=== PATIENT | male | born 1990 | race Hispanic/Latino ===

== ENCOUNTER 2020-09-04 00:27 | Emergency (ER) | payer SELFPAY ==
[2020-09-04] MEDS ORDERED: LIDOCAINE HCL 400MG/20ML VIAL ONE (00:38)
[2020-09-04] MEDS ORDERED: 0.9%NACL 1000ML 2,000 ML IV ONE (01:12)
[2020-09-04 01:21] LABS: BASOPHILS % (AUTO) 0.5 % (0.0-5.0); EOSINOPHILS % (AUTO) 1.9 % (0.0-8.0); HEMATOCRIT 43.8 % (42-54); LYMPHOCYTES % (AUTO) 36.4 % (21.0-51.0); MEAN CORPUSCULAR HEMOGLOBIN 30.4 pg (27.0-33.0); MEAN CORPUSCULAR HGB CONC 34.9 g/dL (32.0-36.0); MEAN CORPUSCULAR VOLUME 87.1 fL (79-99); MONOCYTES % (AUTO) 10.1 % (3.0-13.0); NEUTROPHILS % (AUTO) 50.6 % (40.0-77.0); PLATELET COUNT (AUTO) 240 K/uL (130-400); RED BLOOD CELL COUNT(AUTO) 5.03 MIL/uL (4.50-6.20); RED CELL DISTRIBUTION WIDTH 12.3 % (11.0-15.5); WHITE BLOOD COUNT (AUTO) 9.1 K/uL (4.8-10.8)
[2020-09-04 01:27] LABS: CREATININE 0.9 mg/dL (0.5-1.5); POTASSIUM 3.3 mmol/L (3.5-5.1)
[2020-09-04 01:29] LABS: INR 1.01 (0.85-1.15); PROTHROMBIN TIME 10.8 SEC (9.6-11.6)
[2020-09-04 01:30] LABS: PARTIAL THROMBOPLASTIN TIME 23.8 SEC (26.3-35.5)
[2020-09-04 01:31] LABS: ALBUMIN 4.4 g/dL (3.5-5.0); BILIRUBIN,TOTAL 0.7 mg/dL (0.2-1.0); TOTAL PROTEIN, SERUM 7.9 g/dL (6.0-8.3)
[2020-09-04] MEDS ORDERED: IOHEXOL-350 75 ML VIAL IV ONE (01:33)
[2020-09-04] MEDS ORDERED: CEFAZOLIN SODIUM 1 GM VIAL ONE (02:34)
[2020-09-04] MEDS ORDERED: KETOROLAC 30MG VIAL (30MG/ML) ONE (02:34)
[2020-09-04] MEDS ORDERED: ORPHENADRINE CITRATE 30 MG/ML ML ONE (02:34)
[2020-09-04] MEDS ORDERED: 0.9%NACL 50ML 50 ML IV ONE (02:36)
[2020-09-04] MEDS ORDERED: HYDROCODONE/ACETAMINOPHEN 5/325 MG TAB ONE (03:35)
== END 2020-09-04 03:52 | disposition home or self-care (01) ==
LOC: EDH 00:27
DX: S29.022A Laceration of muscle and tendon of back wall of thorax, initial encounter (principal); X58.XXXA Exposure to other specified factors, initial encounter; Y93.89 Activity, other specified; Y92.89 Other specified places as the place of occurrence of the external cause; Y99.8 Other external cause status
CPT/HCPCS: 12001; 36415; 71045; 71260; 80053; 83690; 84484; 85025; 85610; 85730; 93005; 96361; 96365; 96375; 99291; J0690; J1885; J2360; J3490; J7030; Q9967

== ENCOUNTER 2021-01-05 13:46 | Inpatient (IN) | payer SELFPAY ==
[~2021-01-05] VITALS: Ht 180.3 cm; Wt 88.5 kg
[2021-01-05 14:12] LABS: APPEARANCE,URINE Clear (CLEAR); BILIRUBIN,URINE Negative (NEGATIVE); COLOR,URINE Dark Yellow (YELLOW); GLUCOSE, URINE (UA) Negative (NEGATIVE); KETONES,URINE Trace mg/dL (NEGATIVE); LEUKOCYTE ESTERASE ,URINE Small (NEGATIVE); NITRATE,URINE Negative (NEGATIVE); OCCULT BLOOD,URINE Trace (NEGATIVE); PH,URINE 5.5 (5.0-8.0); PROTEIN,URINE Trace mg/dL (NEGATIVE)
[2021-01-05 14:47] LABS: BASOPHILS % (AUTO) 0.2 % (0.0-5.0); HEMATOCRIT 45.7 % (42-54); LYMPHOCYTES % (AUTO) 3.4 % (21.0-51.0); MEAN CORPUSCULAR HEMOGLOBIN 30.6 pg (27.0-33.0); MEAN CORPUSCULAR HGB CONC 34.8 g/dL (32.0-36.0); MEAN CORPUSCULAR VOLUME 88.1 fL (79-99); MONOCYTES % (AUTO) 6.1 % (3.0-13.0); NEUTROPHILS % (AUTO) 89.9 % (40.0-77.0); PLATELET COUNT (AUTO) 200 K/uL (130-400); RED BLOOD CELL COUNT(AUTO) 5.19 MIL/uL (4.50-6.20); RED CELL DISTRIBUTION WIDTH 13.7 % (11.0-15.5); WHITE BLOOD COUNT (AUTO) 13.6 K/uL (4.8-10.8)
[2021-01-05] MEDS ORDERED: VANCOMYCIN 1GM+NS 250ML 250 ML IV ONE (14:49)
[2021-01-05] MEDS ORDERED: ACETAMINOPHEN EXTRA STRENGTH 500 MG TABLET ONE ×2 (14:50→15:02)
[2021-01-05] MEDS ORDERED: TETANUS/DIPHTHERIA TOXOID [ADULT] 0.5 ML VIAL IM ONE (14:51)
[2021-01-05] MEDS ORDERED: SODIUM CHLORIDE 0.9% 100 ML IV ONE ×2 (14:52→14:57)
[2021-01-05] MEDS ORDERED: ZOSYN 3.375GM+NS 50ML 50 ML IV ONE (14:52)
[2021-01-05] MEDS ORDERED: SODIUM CHLORIDE 0.9% 250 ML IV ONE (14:53)
[2021-01-05 14:57] LABS: CREATININE 1.1 mg/dL (0.5-1.5); POTASSIUM 3.7 mmol/L (3.5-5.1)
[2021-01-05 14:59] LABS: BACTERIA,URINE Rare /HPF (None Seen); RBC,URINE None Seen /HPF (0-1); SQUAMOUS EPITHELIAL CELL,UR None Seen /HPF (0-2)
[2021-01-05 15:01] LABS: TOTAL PROTEIN, SERUM 8.4 g/dL (6.0-8.3)
[2021-01-05 19:47] LABS: AMPHET/METH SCREEN,URINE NEGATIVE (NEGATIVE); BARBITURATE SCREEN, URINE NEGATIVE (NEGATIVE); BENZODIAZEPINES SCREEN,URINE NEGATIVE (NEGATIVE); CANNABINOID SCREEN,URINE NEGATIVE (NEGATIVE); COCAINE SCREEN,URINE NEGATIVE (NEGATIVE); OPIATE SCREEN,URINE NEGATIVE (NEGATIVE); PHENCYCLIDINE SCREEN,URINE NEGATIVE (NEGATIVE)
[2021-01-05] MEDS: ZOSYN 3.375GM+NS 50ML 50 ML IV SCH (21:00)
[2021-01-05] MEDS ORDERED: ACETAMINOPHEN 325 MG TAB ONE (22:54)
[2021-01-05] MEDS ORDERED: SODIUM CHLORIDE 0.9% 1000ML 1,000 ML IV ONE (22:54)
[2021-01-06] MEDS ORDERED: SODIUM CHLORIDE 0.9% 100 ML IV ONE (00:17)
[2021-01-06] MEDS ORDERED: ZOSYN 3.375GM+NS 50ML 50 ML IV ONE ×3 (00:17→17:22)
[2021-01-06] MEDS: SODIUM CHLORIDE 0.9% 1000ML 1,000 ML IV SCH ×6 (03:15→23:43)
[2021-01-06] MEDS ORDERED: KETOROLAC TROMETHAMINE 15MG/ML IV PRN (03:15)
[2021-01-06] MEDS ORDERED: ACETAMINOPHEN 325 MG TAB PO PRN (03:15)
[2021-01-06] MEDS: ZOSYN 3.375GM+NS 50ML 50 ML IV SCH ×3 (05:00→21:00)
[2021-01-06 08:24] LABS: BASOPHILS % (AUTO) 0.3 % (0.0-5.0); EOSINOPHILS % (AUTO) 0.5 % (0.0-8.0); HEMATOCRIT 42.6 % (42-54); LYMPHOCYTES % (AUTO) 11.4 % (21.0-51.0); MEAN CORPUSCULAR HEMOGLOBIN 30.8 pg (27.0-33.0); MEAN CORPUSCULAR HGB CONC 34.7 g/dL (32.0-36.0); MEAN CORPUSCULAR VOLUME 88.6 fL (79-99); MONOCYTES % (AUTO) 10.6 % (3.0-13.0); NEUTROPHILS % (AUTO) 76.9 % (40.0-77.0); PLATELET COUNT (AUTO) 181 K/uL (130-400); RED BLOOD CELL COUNT(AUTO) 4.81 MIL/uL (4.50-6.20); RED CELL DISTRIBUTION WIDTH 13.9 % (11.0-15.5); WHITE BLOOD COUNT (AUTO) 11.5 K/uL (4.8-10.8)
[2021-01-06 08:30] LABS: CREATININE 0.9 mg/dL (0.5-1.5); POTASSIUM 3.6 mmol/L (3.5-5.1)
[2021-01-06] MEDS ORDERED: KETOROLAC TROMETHAMINE 15MG/ML ONE (08:42)
[2021-01-06] MEDS ORDERED: THIAMINE HCL 100 MG/ML 2ML VIAL ONE (08:42)
[2021-01-06] MEDS ORDERED: FOLIC ACID 1 MG TABLET ONE (08:42)
[2021-01-06] MEDS ORDERED: SODIUM CHLORIDE 0.9% 50 ML IV ONE ×2 (08:44→17:23)
[2021-01-06] MEDS: FOLIC ACID 1 MG TABLET PO SCH (09:00)
[2021-01-06] MEDS: THIAMINE HCL 100 MG/ML 2ML VIAL IM SCH (09:00)
[2021-01-06] MEDS ORDERED: VANCOMYCIN PROTOCOL PER PHARMACY IV SCH (18:15)
[2021-01-06] MEDS ORDERED: SODIUM CHLORIDE 0.9% 1000ML 1,000 ML IV ONE (20:22)
[2021-01-06] MEDS ORDERED: SODIUM CHLORIDE 0.9% 250 ML IV ONE (22:13)
[2021-01-06 23:30] VITALS: BP 151/91
[2021-01-06] MEDS: VANCOMYCIN 1GM+NS 250ML 250 ML IV SCH (23:42)
[2021-01-07] VITALS: BP 151/100
[2021-01-07] MEDS: VANCOMYCIN 1GM+NS 250ML 250 ML IV SCH ×2 (00:26→10:12)
[2021-01-07] MEDS: ZOSYN 3.375GM+NS 50ML 50 ML IV SCH (03:28)
[2021-01-07 04:00] VITALS: BP 137/72
[2021-01-07 05:43] LABS: BASOPHILS % (AUTO) 0.4 % (0.0-5.0); EOSINOPHILS % (AUTO) 1.5 % (0.0-8.0); HEMATOCRIT 40.5 % (42-54); LYMPHOCYTES % (AUTO) 16.7 % (21.0-51.0); MEAN CORPUSCULAR HEMOGLOBIN 30.2 pg (27.0-33.0); MEAN CORPUSCULAR HGB CONC 34.1 g/dL (32.0-36.0); MEAN CORPUSCULAR VOLUME 88.6 fL (79-99); MONOCYTES % (AUTO) 13.7 % (3.0-13.0); NEUTROPHILS % (AUTO) 67.3 % (40.0-77.0); PLATELET COUNT (AUTO) 182 K/uL (130-400); RED BLOOD CELL COUNT(AUTO) 4.57 MIL/uL (4.50-6.20); WHITE BLOOD COUNT (AUTO) 8.4 K/uL (4.8-10.8)
[2021-01-07 06:10] LABS: CREATININE 0.9 mg/dL (0.5-1.5); POTASSIUM 3.9 mmol/L (3.5-5.1)
[2021-01-07 07:30] VITALS: BP 144/100
[2021-01-07] MEDS: SODIUM CHLORIDE 0.9% 1000ML 1,000 ML IV SCH (08:12)
[2021-01-07] MEDS: FOLIC ACID 1 MG TABLET PO SCH (09:00)
[2021-01-07] MEDS: THIAMINE HCL 100 MG/ML 2ML VIAL IM SCH (10:20)
[2021-01-07 10:45] VITALS: BP 139/93
[2021-01-07] MEDS ORDERED: LACTATED RINGERS 1000ML 1,000 ML IV ONE (10:50)
[2021-01-07] MEDS ORDERED: LABETALOL 20 MG/4 ML DISP.SYRIN IV PRN (11:00)
[2021-01-07] MEDS ORDERED: CEFAZOLIN SODIUM 1 GM VIAL ONE (11:14)
[2021-01-07 11:30] VITALS: BP 155/109
[2021-01-07 12:14] VITALS: BP 155/109
[2021-01-07] MEDS ORDERED: AMOX-429 PO (12:51)
== END 2021-01-07 13:29 | disposition left against medical advice (07) | DRG 603 ==
LOC: EDH 13:46 → OBSVTOIN 13:47 → EDHIP 13:47 → 3CH 01-06 21:32
PROVIDERS: ADMIT Internal Medicine; ATTEND Internal Medicine
PROC: 3E0234Z Introduction of Serum, Toxoid and Vaccine into Muscle, Percutaneous Approach (ICD-10-PCS; principal; 2021-01-05)
DX: L03.113 Cellulitis of right upper limb (principal); L02.511 Cutaneous abscess of right hand; F10.10 Alcohol abuse, uncomplicated; R74.8 Abnormal levels of other serum enzymes; Z20.822 Contact with and (suspected) exposure to COVID-19; F17.210 Nicotine dependence, cigarettes, uncomplicated; Y04.1XXA Assault by human bite, initial encounter; Y93.89 Activity, other specified; Y92.89 Other specified places as the place of occurrence of the external cause; Y99.8 Other external cause status; Z23 Encounter for immunization
CPT/HCPCS: 36415; 73130; 73218; 80048; 80053; 80305; 81001; 85025; 87070; 87076; 87426; 90714; G0378; J0690; J1885; J2543; J3370; J3411; J7030; J7050; J7120; U0003